=== PATIENT | male | born 1990 | race Hispanic/Latino ===

== ENCOUNTER 2017-12-11 10:34 | Emergency (ER) | payer SELFPAY ==
[2017-12-11] MEDS ORDERED: Lidocaine 1% PF 5 ML VIAL ONE (11:35)
[2017-12-11] MEDS ORDERED: Lidocaine 1% w/Epinephrine 1:100K 20 ML VIAL ONE (11:37)
--- NOTE | 2017-12-11 12:15 | RAD ---
ONE VIEW CHEST: HISTORY: Pain. COMPARISON: None. FINDINGS: Normal cardiac silhouette. The pulmonary vessels and hilum are normal. Costophrenic angles are adin r. No consolidation or mass. No pneumothorax or osseous abnormlaities. IMPRESSION: No acute cardiopulmonary process. POS: [facility]
[2017-12-11 12:34] LABS: #Basophils 0.1 thou/uL (0.0-0.2); #Lymphocytes 2.5 thou/uL (1.20-3.40); #Monocytes 1.1 thou/uL (0.11-0.59); #Neutrophils 7.7 thou/uL (1.40-6.50); %Basophils 0.5 % (0.0-1.0); %Eosinophils 0.3 % (0.0-10.0); %Lymphocytes 21.6 % (21.0-51.0); %Neutrophils 67.6 % (42.0-75.0); Hemoglobin 14.3 g/dL (14.0-18.0); Mean Corpuscular Hemoglobin 30.5 pg (27.0-31.0); Mean Corpuscular Volume 89.6 fL (78.0-98.0); Mean Platelet Volume 6.8 fL (7.4-10.4); Platelet Count 190 thou/uL (130-400); RBC Distribution Width 12.1 % (11.5-14.5); White Blood Cell (WBC) Count 11.4 thou/uL (4.8-10.8)
[2017-12-11 12:57] LABS: Bilirubin Negative (Negative); Blood, Urine Negative (Negative); Clarity CLEAR (Clear); Glucose, Urine (Dipstick) Negative (Negative); Leukocyte Negative (Negative); Nitrite Negative (Negative); Protein, Urine (Dipstick) 30 mg/dL (Neg-Trace); Specific Gravity, Urine 1.027 (1.002-1.036)
[2017-12-11 12:58] LABS: ALT (SGPT) 42 U/L (8-55); AST (SGOT) 25 U/L (5-34); Albumin 4.1 g/dL (3.5-5.0); Alkaline Phosphatase 78 U/L (40-150); Anion Gap 15 mmol/L (10-20); BUN (Urea Nitrogen) 11 mg/dL (8.9-20.6); Bilirubin, Total 0.5 mg/dL (0.2-1.2); Calc. Creatinine Clearance 0 mL/min (70-130); Calcium 9.1 mg/dL (7.8-10.44); Carbon Dioxide 21 mmol/L (22-29); Chloride 104 mmol/L (98-107); Estimated GFR-MDRD Greater than 90; Globulin 3.1 g/dL (2.4-3.5); Glucose 120 mg/dL (70-105); Potassium 3.8 mmol/L (3.5-5.1); Protein, Total 7.2 g/dL (6.0-8.3); Sodium 136 mmol/L (136-145)
[2017-12-11 12:58] LABS: Bacteria/HPF None Seen HPF (None Seen); Hyaline Casts/LPF 0-3 HYALINE CAST LPF (0-3 Hyaline); RBC/HPF 0-3 HPF (0-3); Squamous Epithelial 0-3 HPF (0-3); WBC/HPF 0-3 HPF (0-3)
[2017-12-11 13:00] LABS: Renal Epithelial None Seen HPF (0-3); Transitional Epithelial NONE SEEN HPF (0-3)
== END 2017-12-11 13:49 | disposition home or self-care (01) ==
LOC: ERS 10:34 → EDBD 10:34 → ERS 13:49
DX: L03.112 Cellulitis of left axilla (principal); R59.0 Localized enlarged lymph nodes
CPT/HCPCS: 10060; 36415; 71045; 80053; 81003; 81015; 83605; 85025; J2001

== ENCOUNTER 2017-12-13 08:12 | Emergency (ER) | payer SELFPAY | END 2017-12-13 08:35 | disposition home or self-care (01) | LOC: ERS 08:12 | DX: Z48.817 Encounter for surgical aftercare following surgery on the skin and subcutaneous tissue (principal) | CPT/HCPCS: 99282 ==

== ENCOUNTER 2022-05-27 10:06 | Outpatient (CLI) | payer BC | END 2022-05-27 10:07 | disposition home or self-care (01) | LOC: RAD 10:06 | PROVIDERS: ATTEND Nurse Practitioner Family | DX: M25.562 Pain in left knee (principal) ==

== ENCOUNTER 2022-06-25 09:32 | Outpatient (CLI) | payer BC | END 2022-06-25 09:33 | disposition home or self-care (01) | LOC: TBSIIMAG 09:32 | PROVIDERS: ATTEND Orthopaedic Surgery | DX: M23.92 Unspecified internal derangement of left knee (principal); M76.52 Patellar tendinitis, left knee; R60.0 Localized edema ==